=== PATIENT | female | born 1990 | race Two or more races ===

== ENCOUNTER 2016-12-31 07:15 | Emergency (ER) | payer MEDICAID ==
[~2016-12-31] VITALS: Ht 160 cm; Wt 87.5 kg
[~2016-12-31 07:15] MED LIST: ALBU18; PREN-96 PO
[2016-12-31 07:53] VITALS: BP 112/72
== END 2016-12-31 09:03 | disposition home or self-care (01) ==
LOC: ER 07:15
DX: M46.46 Discitis, unspecified, lumbar region (principal); W10.9XXS Fall (on) (from) unspecified stairs and steps, sequela
CPT/HCPCS: 72110

== ENCOUNTER 2017-11-29 09:23 | Emergency (ER) | payer MEDICAID ==
[~2017-11-29] VITALS: Ht 160 cm; Wt 81.2 kg
[2017-11-29] MEDS ORDERED: IBUPROFEN 600 MG TAB PO ONE ×2 (09:30)
[2017-11-29 14:55] VITALS: BP 108/66
== END 2017-11-29 15:43 | disposition home or self-care (01) ==
LOC: ER 09:23
DX: S53.401A Unspecified sprain of right elbow, initial encounter (principal); S43.401A Unspecified sprain of right shoulder joint, initial encounter; Z98.51 Tubal ligation status; W18.39XA Other fall on same level, initial encounter; Y93.41 Activity, dancing; Y92.89 Other specified places as the place of occurrence of the external cause; Y99.8 Other external cause status
CPT/HCPCS: 73030; 73080